=== PATIENT | male | born 1950 | race Caucasian/White ===

== ENCOUNTER 2018-09-30 19:24 | Inpatient (IN) | payer MEDICARE ==
[~2018-09-30] VITALS: Ht 182.9 cm; Wt 126.0 kg
[2018-09-30 19:30] VITALS: BP 103/36
[2018-09-30] MEDS ORDERED: CHLORTHALIDONE25 MG PO (19:31)
[2018-09-30] MEDS ORDERED: COLACE100 MG PO (19:31)
[2018-09-30] MEDS ORDERED: VITAMIN D2000 UNIT PO (19:31)
[2018-09-30] MEDS ORDERED: OXYCONTIN15 MG PO (19:31)
[2018-09-30] MEDS ORDERED: NOVOLOG100 UNIT/1 SC (19:31)
[2018-09-30] MEDS ORDERED: MIRALAX17 GM PO (19:32)
[2018-09-30] MEDS ORDERED: COZAAR50 MG PO (19:32)
[2018-09-30 20:30] VITALS: BP 112/50
[2018-09-30 20:41] LABS: BASOPHILS 0.2 % (0-2); HEMATOCRIT 24.1 % (36.0-48.0); HEMOGLOBIN 8.1 g/dL (12-16); IMMATURE GRANULOCYTES 0.5 % (0-5); LYMPHOCYTES 17.9 % (15-50); MCH 25.8 pg (26.0-34.0); MCHC 33.6 g/dL (31.0-37.0); MCV 76.8 fL (80.0-100.0); MEAN PLATELET VOLUME 7.8 fL (7.4-10.4); MONOCYTES 9.3 % (2-11); NEUTROPHILS 70.1 % (40-80); PLATELET COUNT 231 10x3/uL (130-400); RBC 3.14 10x6/uL (4.00-5.40); RDW 14.7 % (11.5-14.5); WBC 6.5 10x3/uL (4.8-10.8)
[2018-09-30 21:30] VITALS: BP 116/50
[2018-09-30 21:41] LABS: ALBUMIN 1.7 g/dL (3.4-5.0); BILIRUBIN - TOTAL 0.47 mg/dL (0.2-1.3); CALCIUM 7.4 mg/dL (8.5-10.1); CARBON DIOXIDE 16.4 mmol/L (21.0-32.0); CREATININE - SERUM 6.6 mg/dL (0.6-1.3); PROTEIN - SERUM 7.2 g/dL (6.4-8.2)
[2018-09-30 21:44] LABS: POTASSIUM - SERUM 6.4 mmol/L (3.5-5.1)
[2018-09-30 22:30] VITALS: BP 107/49
[2018-09-30 23:35] LABS: ANION GAP 21.8 mmol/L (8-16); CALCIUM 7.3 mg/dL (8.5-10.1); CREATININE - SERUM 6.6 mg/dL (0.6-1.3); POTASSIUM - SERUM 5.8 mmol/L (3.5-5.1)
[2018-10-01] VITALS (7 sets, daily range): BP systolic 108–123; BP diastolic 45–66; Ht 182.9 cm; Wt 126.0 kg
--- NOTE | 2018-10-01 00:50 | NUR ---
PT ARRIVED TO ROOM 2129, PT ABLE TO TELL NURSE NAME, , WHERE HOSPITAL IS, HAD FORGOT NAME. STATES HE IS IN A REHAB [facility]. FACE IS FLUSHED, IV RIGHT HAND 20G SODIUM BICARB INFUSING AT 100, PT HAS WEAKNESS UPPER AND LOWER. LEFT HAND HAS CONTRACTION FROM A PAST SURG. LEFT HEEL HAS A LARGE BLISTER, BOGGY, CLOSED UNSTAGEABLE. PLACED A MEPILEX ON AREA AND APPLIED HEEL PROTECTORS. RIGHT FOOT HAS A SORE ON BOTTOM OF FOOT, ON PAD OF TOES UNDER GREATER TOE. SCAB ON SORE, UNKNOWN STAGE, SMALL SORE ON GREATER TOE. OPEN COVERED BOTH WITH A MEPILEX AND APPLIED A HEEL PROTECTOR TO RIGHT FOOT WELL. CHECKED PT BUTTOCK. SOME REDNESS THAT IS BLANCHABLE. SOME SKIN PEELING IN COCCYX. NO OPEN AREA. PLACED A MEPILEX ON COCCYX. PT ORIENTED TO ROOM AND CALL LIGHT. EDEMA NOTED ON LOWER EXTREM. PT DENIES ANY NEEDS AT THIS TIME. NO S/S OF DISTRESS. WILL CPOC
[2018-10-01] MEDS ORDERED: ELAVIL10 MG PO (04:26)
[2018-10-01] MEDS ORDERED: BUMEX2 MG PO (04:27)
[2018-10-01] MEDS ORDERED: CYMBALTA20 MG PO (04:30)
[2018-10-01] MEDS ORDERED: LEVEMIR IN100 UNITS/ SC (04:31)
[2018-10-01] MEDS ORDERED: LONITEN10 MG PO (04:32)
[2018-10-01] MEDS ORDERED: ELIQUIS5 MG PO (04:35)
[2018-10-01] MEDS ORDERED: COREG25 MG PO (04:36)
[2018-10-01] MEDS ORDERED: NOVOLOG100 UNIT/1 SC (04:37)
[2018-10-01] MEDS ORDERED: CATAPRES0.1 MG PO (04:39)
--- NOTE | 2018-10-01 05:18 | NUR ---
SODIUM POLYSTYRENE GIVEN ORDERED. PT SITTING WITH HOB UP WILL CHECK BACK TO MAKE SURE PT HAS DRANK ALL OF ORDERED DOSE.
[2018-10-01 06:02] LABS: BASOPHILS 0.1 % (0-2); EOSINOPHILS 3.1 % (0-7); HEMATOCRIT 23.5 % (36.0-48.0); HEMOGLOBIN 7.7 g/dL (12-16); IMMATURE GRANULOCYTES 0.3 % (0-5); MCH 25.5 pg (26.0-34.0); MCHC 32.8 g/dL (31.0-37.0); MCV 77.8 fL (80.0-100.0); MEAN PLATELET VOLUME 8.1 fL (7.4-10.4); MONOCYTES 8.3 % (2-11); NEUTROPHILS 69.2 % (40-80); PLATELET COUNT 254 10x3/uL (130-400); RBC 3.02 10x6/uL (4.00-5.40); RDW 14.7 % (11.5-14.5); WBC 6.7 10x3/uL (4.8-10.8)
[2018-10-01 06:03] LABS: ALBUMIN 1.6 g/dL (3.4-5.0); ANION GAP 22.9 mmol/L (8-16); BILIRUBIN - TOTAL 0.4 mg/dL (0.2-1.3); CALCIUM 7.2 mg/dL (8.5-10.1); CARBON DIOXIDE 16.9 mmol/L (21.0-32.0); CREATININE - SERUM 6.4 mg/dL (0.6-1.3); POTASSIUM - SERUM 5.8 mmol/L (3.5-5.1); PROTEIN - SERUM 6.9 g/dL (6.4-8.2)
--- NOTE | 2018-10-01 06:18 | NUR ---
PT GLUCOSE IS 142 NO TREATMENT NEEDED PER SLIDING SCALE.
--- NOTE | 2018-10-01 06:20 | NUR ---
PT HAS COMPLETED ALL OF KAYEXALATE ORDERED. DENIES ANY NEEDS. WILL CPOC
[2018-10-01 09:11] LABS: COMPLEMENT C4 33.3 mg/dL (17.4-52.2)
[2018-10-01 10:15] LABS: ERYTHROCYTE SEDIMENTATION RATE 140 mm/hr (0-20)
[2018-10-01 19:43] LABS: CREATININE - URINE 78.7 mg/dL (30-125); PRO/CRE RATIO URINE 1.1 mg/g; PROTEIN - URINE 89.9 mg/dL (0.0-11.9)
[2018-10-01 19:54] LABS: AMORPHOUS SEDIMENT <1+ /lpf (NONE SEEN); APPEARANCE CLEAR (CLEAR); BACTERIA MODERATE /hpf (NONE SEEN); BILIRUBIN NEGATIVE (NEGATIVE); COLOR STRAW (YELLOW); EPITHELIAL CELLS 0-5 /hpf (0-5); GLUCOSE 50 mg/dL (NEGATIVE); KETONE NEGATIVE (NEGATIVE); NITRITE NEGATIVE (NEGATIVE); PROTEIN 1+ mg/dL (NEGATIVE); UROBILINOGEN NORMAL (NORMAL); WHITE CELLS - URINE 0-5 /hpf (0-5)
--- NOTE | 2018-10-02 00:21 | NUR ---
KAYEXALATE GIVEN ORDERED. PT FSBS IS 164 LEVEMIR AND EVAIL UNAVALIBLE. PHARMACY DID NOT PLACE IN CASSETTE. HUMILIN IS AVALIBLE. 4 UNITS GIVEN AND SNACK PROVIDED. PT DENIES ANY NEEDS. WILL CPOC
--- NOTE | 2018-10-02 02:57 | NUR ---
PT CALLED TO USE BEDPAN FOR BM. ONCE HAD A SMALL BM CLEANED AND PULLED UP IN BED. PT ASKED FOR BEDPAN AGAIN. AND CALLED TO GET OFF WITHIN 2 MINS
--- NOTE | 2018-10-02 03:06 | NUR ---
PT HAD ONE SMALL LOOSE BM, CLEANED AND REPOSITIONED. HEEL PROTECTORS ON
[2018-10-02 05:00] VITALS: BP 126/50
--- NOTE | 2018-10-02 07:30 | NUR ---
REPORT RECEIVED. WILL CONTINUE WITH POC. PT CURRENTLY LYING SEMI FOWLERS. CALL LIGHT W/I REACH. PT IS AAO AND BEDFAST. RR EVEN AND UNLABORED ON RA. SODIUM BICARB INFUSING @100ML/HR VIA R.HAND PIV. PT HAD 3 LARGE EPISODES OF DIARRHEA. CLEANED PT AND APPLIED NEW LINEN. PT DENIES ANY NEEDS AT THIS TIME. NO S/S OF DISTRESS NOTED. WILL CTM.
[2018-10-02 09:10] VITALS: BP 124/49
[2018-10-02 11:10] LABS: CREATININE - SERUM 5.2 mg/dL (0.6-1.3)
[2018-10-02 11:12] LABS: ANION GAP 16.2 mmol/L (8-16); CARBON DIOXIDE 24.8 mmol/L (21.0-32.0)
[2018-10-02 11:13] LABS: CALCIUM 6.6 mg/dL (8.5-10.1)
[2018-10-02 12:12] LABS: ANA REFLEX - DIRECT Negative (Negative)
[2018-10-02 13:24] VITALS: BP 138/54
--- NOTE | 2018-10-02 14:06 | NUR ---
Nutrition follow Up Renal ADA diet with fair po intake Pt reports eating about 50% Pt is drinking Conrad Bm today-pt has diarrhea Will add Yogurt Encouraged good po intake RD following
[2018-10-02 15:11] LABS: SPE - A/G RATIO 0.5 (0.7-1.7); SPE - ALPHA-1 GLOBULIN 0.4 g/dL (0.0-0.4); SPE - BETA GLOBULIN 1.2 g/dL (0.7-1.3); SPE - GAMMA GLOBULIN 1.5 g/dL (0.4-1.8); SPE - M-SPIKE Not Observed g/dL (Not Observed); SPE - TOTAL PROTEIN 6.1 g/dL (6.0-8.5)
[2018-10-02 17:05] VITALS: BP 127/52
[2018-10-02 20:00] VITALS: BP 126/55
--- NOTE | 2018-10-02 21:55 | NUR ---
PT FSBS IS 197 LEVEMIR GIVEN ORDERED. REG INSULIN NOT GIVEN TONIGHT. PT RESTING IN BED. DENIES ANY NEEDS. NO S/S OF DISTRESS. WILL CPOC
[2018-10-03] VITALS: BP 128/58
--- NOTE | 2018-10-03 02:50 | NUR ---
PT SLEEP. RESP EVEN AND UNLABORED. BEDLOW AND CALL LIGHT IN REACH. NO S/S OF DISTRESS. SODIUM BICARB INFUSING AT 100 ORDERED. WILL CPOC
--- NOTE | 2018-10-03 05:51 | NUR ---
PT INCONT/SPILLED URINAL A LARGE AMOUNT. GAVE PT A COMPLETE BED BATH, CHANGED GOWN AND LINEN. RIGHT GROIN/ABDOMEN SKIN FOLD RED AND MOIST. LEFT GROIN REDNESS. CLEANED AND DRIED BOTH AREAS. PLACED A MOISTURE BARRIER AND A PAPER TOWEL TO SEPARATE SKIN FOLDS. PT BUTTOCK STILL RED/HAS EXCORIATION CLEANED AND PLACED MOISTURE BARRIER. RIGHT FOOT GREATER TOE AND UNDER GREATER TOE ON TOE PAD SORES DRSG'S ARE SOILD. CHANGED DRSG'S. LEFT HEEL BLISTER PURPLE AND BOGGY. CLEANED AREA AND DRIED. PLACED A MEPILEX AND ELEVATED HEEL. PT REFUSING KAYEXALATE THIS MORNING. RIGHT HAND 20G HAS SOME REDNESS. PATENT. PT BEDLOW AND CALL LIGHT IN REACH. NOURISHMENT WITHIN REACH. PT WILL CALL FOR ASSIST WHEN NEEDED. WILL CPOC
[2018-10-03 06:04] LABS: CARBON DIOXIDE 26.4 mmol/L (21.0-32.0); CREATININE - SERUM 4.2 mg/dL (0.6-1.3); POTASSIUM - SERUM 3.4 mmol/L (3.5-5.1)
[2018-10-03 06:22] VITALS: BP 131/60
[2018-10-03 06:29] LABS: CALCIUM 6.5 mg/dL (8.5-10.1)
--- NOTE | 2018-10-03 06:36 | NUR ---
PT GLUCOSE WITH MORNING LABS ARE 115 NO INSULIN NEEDED. OFFERED SNACK PT DECLINED STATES HE WILL WAIT FOR BREAKFAST. PT HAS NO S/S OF DISTRESS. BEDLOW AND CALL LIGHT IN REACH. WILL CPOC
[2018-10-03 06:54] LABS: BASOPHILS 0.1 % (0-2); EOSINOPHILS 1.9 % (0-7); HEMATOCRIT 25.9 % (42.0-54.0); HEMOGLOBIN 8.5 g/dL (13.5-17.5); IMMATURE GRANULOCYTES 0.2 % (0-5); LYMPHOCYTES 21.6 % (15-50); MCH 25.8 pg (26.0-34.0); MCHC 32.8 g/dL (31.0-37.0); MCV 78.7 fL (80.0-100.0); MEAN PLATELET VOLUME 8.1 fL (7.4-10.4); MONOCYTES 6.7 % (2-11); NEUTROPHILS 69.5 % (40-80); PLATELET COUNT 283 10x3/uL (130-400); RBC 3.29 10x6/uL (4.20-6.10); RDW 14.8 % (11.5-14.5)
--- NOTE | 2018-10-03 07:00 | NUR ---
RECEIVED REPORT. ASSUMED CARE OF PATIENT. CALL LIGHT WITHIN REACH. NO DISTRESS. RESTING WITH EYES CLOSED. EASILY AROUSED.
[2018-10-03 09:08] VITALS: BP 147/62
--- NOTE | 2018-10-03 10:30 | NUR ---
RESTING IN BED. NO DISTRESS. TOLERATES ORAL MEDICATIONS WELL. CALL LIGHT WITHIN REACH.
[2018-10-03 11:31] VITALS: BP 145/48
--- NOTE | 2018-10-03 11:48 | NUR ---
FSBS 149. NO INSULIN PER SLIDING SCALE. NO DISTRESS.
--- NOTE | 2018-10-03 14:02 | NUR ---
MEDICATED FOR PAIN AT THIS TIME. NO DISTRESS.
[2018-10-03 15:30] VITALS: BP 138/51
--- NOTE | 2018-10-03 16:19 | NUR ---
FSBS 156. 4 UNITS HUMULIN ADMINISTERED PER SLIDIDNG SCALE. NO DISTRESS.
[2018-10-03 17:07] LABS: ANCA - ANTIMYELOPEROXIDASE <9.0 U/mL (0.0-9.0); ANCA - ANTIPROTEINASE 3 <3.5 U/mL (0.0-3.5); ANCA - ATYPICAL <1:20 titer (Neg:<1:20); ANCA - CYTOPLASMIC <1:20 titer (Neg:<1:20); ANCA - PERINUCLEAR <1:20 titer (Neg:<1:20)
--- NOTE | 2018-10-03 18:13 | NUR ---
RESTING IN BED WITH EYES CLOSED. NO DISTRESS.
[2018-10-03 20:00] VITALS: BP 104/52
--- NOTE | 2018-10-03 20:13 | NUR ---
RECEIVED REPORT, WILL ASSUME CARE OF PT, ASSIST PT WITH A DRINK OF WATER, DENIES ANY OTHER NEEDS AT THIS TIME, BED IS LOW, SRX3, CALL LIGHT IN REACH, WILL CONTINUE PLAN OF CARE
[2018-10-04] VITALS: BP 109/58
--- NOTE | 2018-10-04 02:52 | NUR ---
SLEEPING, BED IS LOW, SRX3, CALL LIGHT IN REACH, WILL CONTINUE PLAN OF CARE
[2018-10-04 03:00] VITALS: BP 121/50
--- NOTE | 2018-10-04 03:01 | NUR ---
I have reviewed this patient and I concur with the Shift Assessment completed by the Licensed Practical Nurse today this shift.
[2018-10-04 04:58] LABS: BASOPHILS 0 % (0-2); EOSINOPHILS 0.5 % (0-7); HEMATOCRIT 23.8 % (42.0-54.0); HEMOGLOBIN 7.8 g/dL (13.5-17.5); IMMATURE GRANULOCYTES 0.5 % (0-5); MCH 25.9 pg (26.0-34.0); MCHC 32.8 g/dL (31.0-37.0); MCV 79.1 fL (80.0-100.0); MEAN PLATELET VOLUME 7.7 fL (7.4-10.4); MONOCYTES 8.9 % (2-11); NEUTROPHILS 70.1 % (40-80); RBC 3.01 10x6/uL (4.20-6.10); RDW 14.6 % (11.5-14.5)
[2018-10-04 05:06] LABS: PLATELET COUNT 217 10x3/uL (130-400)
--- NOTE | 2018-10-04 07:39 | NUR ---
ROUNDING DONE WITH PATIENT LAYING ON HIS BACK. LEFT PACEMAKER SITE SEEN, ON MONITOR SHOWING PACED, HR 64. RIGHT HAND PIV SEEN WITH NABICAR INFUSING AT 100 CC/HR. CRACKLES HEARD THROUGHOUT LEFT LUNG FIELD. ENCOURAGED TO COUGH AND DEEP BREATH. DRESSING SEEN TO RIGHT FOOT, LEFT HEEL SEEN WITH MEPILEX. BOTH OF THESE AE C/D/I. FEET ARE UP ON PILLOW.
[2018-10-04 08:32] VITALS: BP 139/52
[2018-10-04 09:19] LABS: ANION GAP 11.3 mmol/L (8-16); CARBON DIOXIDE 30.9 mmol/L (21.0-32.0); CREATININE - SERUM 3.4 mg/dL (0.6-1.3); POTASSIUM - SERUM 3.2 mmol/L (3.5-5.1)
[2018-10-04 09:26] LABS: CALCIUM 6.5 mg/dL (8.5-10.1)
[2018-10-04 12:27] VITALS: BP 140/57
--- NOTE | 2018-10-04 13:53 | NUR ---
PATIENT TO RIP OUT HIS IV AND COVERED IN BM. CLEANED UP FROM THIS AND NEW LINEN CHANGED. WILL ATTEMPT IV ACCESS AGAIN.
--- NOTE | 2018-10-04 14:31 | NUR ---
PATIENT HAS TRIED SEVERAL TIMES TO HAVE A BM, PASSING FLATUS ONLY.
--- NOTE | 2018-10-04 15:26 | NUR ---
RESTING WITH EYES CLOSED, RESP ARE EVEN, LAYING ON LEFT SIDE. WILL CONTINUE TO MONITOR.
[2018-10-04 15:58] VITALS: BP 131/58
--- NOTE | 2018-10-04 19:20 | NUR ---
RECEIVED REPORT, WILL ASSUME CARE OF PT, ASSISTED PT WITH A DRINK OF WATER, DENIES ANY OTHER NEEDS AT THIS TIME, BED IS LOW, SRX2, CALL LIGHT IN REACH, WILL CONTINUE PLAN OF CARE
[2018-10-04 20:26] VITALS: BP 143/63
[2018-10-05 01:17] VITALS: BP 140/55
--- NOTE | 2018-10-05 03:18 | NUR ---
I have reviewed this patient and I concur with the Shift Assessment completed by the Licensed Practical Nurse today this shift.
[2018-10-05 05:14] LABS: BASOPHILS 0.2 % (0-2); EOSINOPHILS 1.9 % (0-7); HEMATOCRIT 26.1 % (42.0-54.0); HEMOGLOBIN 8.4 g/dL (13.5-17.5); IMMATURE GRANULOCYTES 0.6 % (0-5); MCHC 32.2 g/dL (31.0-37.0); MCV 80.8 fL (80.0-100.0); MEAN PLATELET VOLUME 8.1 fL (7.4-10.4); NEUTROPHILS 68.3 % (40-80); RBC 3.23 10x6/uL (4.20-6.10); RDW 14.2 % (11.5-14.5)
[2018-10-05 05:21] LABS: PLATELET COUNT 295 10x3/uL (130-400); WBC 10.8 10x3/uL (4.8-10.8)
[2018-10-05 05:48] LABS: ANION GAP 8.7 mmol/L (8-16); CARBON DIOXIDE 34.2 mmol/L (21.0-32.0); CREATININE - SERUM 2.8 mg/dL (0.6-1.3)
[2018-10-05 05:52] LABS: POTASSIUM - SERUM 2.9 mmol/L (3.5-5.1)
[2018-10-05 05:55] VITALS: BP 172/53
--- NOTE | 2018-10-05 06:00 | NUR ---
BS-46, GAVE 2 APPLEJUICES AND LEODAN CRACKERS
[2018-10-05 08:08] VITALS: BP 128/47
--- NOTE | 2018-10-05 08:31 | NUR ---
PT RESTING IN BED, SHIFT ASSESSMENT PERFORMED. ASSISTED PT WITH TRAY SET UP. DENIES ANY PAIN AT THIS TIME. DENIES ANY OTHER NEEDS AT THIS TIME. CALL LIGHT WITHIN REACH. WILL CONT TO FOLLOW PLAN OF CARE
[2018-10-05 09:08] LABS: ANTI-GLOMERULAR BASMENT MEMBRN 5 units (0-20)
[2018-10-05 12:08] VITALS: BP 150/59
--- NOTE | 2018-10-05 19:21 | NUR ---
ASSESSEMENT COMPLETE, PT A&O. RESPERATIONS NON LABORED ON RA, IV TO RIGHT AC WITH NS INFUSING AT KVO. IV SITE CLEAN AND DRY. HELD CUP SO PT COULD GET A DRINK, NO OTHER NEEDS VOICED AT THIS TIME, BED LOW, CL IN REACH.
[2018-10-05 22:04] VITALS: BP 158/69
[2018-10-06] VITALS (7 sets, daily range): BP systolic 137–163; BP diastolic 54–81
--- NOTE | 2018-10-06 04:26 | NUR ---
I have reviewed this patient and I concur with the Shift Assessment completed by the Licensed Practical Nurse today this shift.
[2018-10-06 05:44] LABS: BASOPHILS 0.1 % (0-2); EOSINOPHILS 1.1 % (0-7); HEMATOCRIT 24.8 % (42.0-54.0); HEMOGLOBIN 7.7 g/dL (13.5-17.5); IMMATURE GRANULOCYTES 0.3 % (0-5); LYMPHOCYTES 18.4 % (15-50); MCH 25.1 pg (26.0-34.0); MCV 80.8 fL (80.0-100.0); MEAN PLATELET VOLUME 8.1 fL (7.4-10.4); MONOCYTES 7.3 % (2-11); NEUTROPHILS 72.8 % (40-80); RBC 3.07 10x6/uL (4.20-6.10); RDW 14.2 % (11.5-14.5); WBC 9.5 10x3/uL (4.8-10.8)
[2018-10-06 06:17] LABS: PLATELET COUNT 231 10x3/uL (130-400)
[2018-10-06 06:36] LABS: ANION GAP 12.5 mmol/L (8-16); CALCIUM 7.1 mg/dL (8.5-10.1); CARBON DIOXIDE 29.5 mmol/L (21.0-32.0); CREATININE - SERUM 2.3 mg/dL (0.6-1.3)
--- NOTE | 2018-10-06 07:47 | NUR ---
MORNING ROUNDS MADE. PT LAYING IN BED RESTING. DENIES PAIN AT THIS TIME. BREATHING EVEN AND UNLABORED. 3+ PITTING EDEMA TO BLE. RM AIR. IV TO R FA BACILIO. KAELYN C/D/I. PATENT, NO REDNESS OR EDEMA NOTED. PACED ON TELE. FALL PRECATIONS IN PLACE. WILL CTM.
--- NOTE | 2018-10-06 09:48 | NUR ---
PT TOOK MEDICATIONS WITHOUT DIFFICULTY. ASSITED PT WITH BREAKFAST. HAS A HARD TIME USING HANDS DUE TO TENDON INJURY. BLISTER TO PT L HEEL OPENED WHEN PT WAS BEING ASSITED UP IN BED BY STUDENT NURSES. HEEL COVERED WITH DRESSING. NO FURTHER CONCERNS AT THIS TIME. FALL PRECAUTIONS IN PLACE. WILL CTM.
--- NOTE | 2018-10-06 09:49 | NUR ---
BLOOD RECEIVED FROM BLOOD BANK. BLOOD BEGAN TO PT IV IN R FA. IV PATENT, DRSG C/D/I, NO REDNESS OR EDEMA NOTED. BEGINING VITALS STABLE. PT STATES HE HAS NEVER HAD BLOOD BEFORE. PT TO RECEIVE 1 UNIT OF PRBC. UNIT HUNG BY KLAUS CROWDER. WILL MONITOR PT FOR FIRST 15 MINUTES OF TRANSFUSION. NO S/S OF DISTRESS AT THIS TIME. WILL CTM.
--- NOTE | 2018-10-06 10:01 | NUR ---
PT SECOND SET OF VITALS DURING BLOOD TRANSFUSION WNL
--- NOTE | 2018-10-06 12:28 | NUR ---
PT LOOKING FLUSHED AND WARM TO TOUCH. CHECKED PT TEMP, 100.3. PAUSED TRANSFUSION. NOTIFIED CHARGE NURSE BRAYAN CROWDER. STATED THAT SINCE PT HAD BEEN STEADILY RUNNING LOW GRADE TEMP CONTINUE TO FLUSH BLOOD. BLANKETS REMOVED FROM PT, AIR TURNED ON IN ROOM, AND FAN APPLIED TOWARD PT. WILL CTM
--- NOTE | 2018-10-06 13:27 | NUR ---
I have reviewed this patient and I concur with the Shift Assessment completed by the Licensed Practical Nurse today this shift.
--- NOTE | 2018-10-06 14:56 | NUR ---
Nutrition follow-up: Diet: Renal ADA PO Intake 75-100% of meals Labs reviewed Wt: 290# +BM RDN following.
--- NOTE | 2018-10-06 15:47 | NUR ---
PT GIVEN A BATH BY WOODWORKING BENCH CARPENTER NEW DRSG APPLIED TO BUTTOCKS R GREAT TOE, AND L HEEL. DRSG C/D/I. NO FURTHER CONCERNS AT THIS TIME. WILL CTM.
[2018-10-06 17:08] LABS: UPE RAND - ALBUMIN QNS % (()); UPE RAND - ALPHA 1 GLOBULIN QNS % (()); UPE RAND - ALPHA 2 GLOBULIN QNS % (()); UPE RAND - BETA GLOBULIN QNS % (()); UPE RAND - GAMMA GLOBULIN QNS % (())
--- NOTE | 2018-10-06 17:11 | MORECARE ---
CASE MANAGEMENT DISCHARGE SUMMARY PATIENT: DARWIN ROJAS UNIT: [id number] ADM DATE: 09/30/18 AGE: 67 : 49 SEX: M ROOM/BED: D.2130 AUTHOR: KAREEN MOISE PHYSICIAN: REFERRING PHYSICIAN: CHIQUIS PETTY MD DATE OF SERVICE: 10/06/18 Discharge Plan Patient Name: DARWIN ROJAS [facility] [facility] 1950 Planned Disposition: Custodial Facility Anticipated Discharge Date: Discharge Date: Expected LOS: Initial Reviewer: [id number] Initial Review Date: 10/06/2018 Generated: 10/06/18 6:10 pm Patient Name: DARWIN ROJAS Page [phone] at 1711 All edits/amendments must be made on the electronic document DICTATION DATE: 10/06/181709 BASE ENGINEER: CHUNG 10/06/181709 RPT#: [id number] DC DATE: STATUS: ADM IN [facility] [address] [place] [address] END OF REPORT
--- NOTE | 2018-10-06 17:19 | MORECARE ---
CASE MANAGEMENT DISCHARGE SUMMARY PATIENT: DARWIN ROJAS UNIT: [id number] ADM DATE: 09/30/18 AGE: 67 : 49 SEX: M ROOM/BED: D.2130 AUTHOR: KAREEN MOISE PHYSICIAN: REFERRING PHYSICIAN: CHIQUIS PETTY MD DATE OF SERVICE: 10/06/18 Discharge Plan Patient Name: DARWIN ROJAS [facility] [facility] 1950 Planned Disposition: Care Home Facility Anticipated Discharge Date: Discharge Date: Expected LOS: Initial Reviewer: [email or web address] Initial Review Date: 10/06/2018 Generated: 10/06/18 6:18 pm Comments DCP- Discharge Planning Updated by [id number]: Yao Cervantes on 10/06/18 4:[address] Patient Name: DARWIN ROJAS Admission Status: ER Accout number: [id number] Admission Date: 09-30-2018 : 1950 Admission Diagnosis:ACUTE KIDNEY FAILURE, UNSPECIFIED Attending: CHIQUIS PETTY Current LOS: 6 Anticipated DC Date: Planned Disposition: Care Home Facility Primary Insurance: MEDICAID [place] PLANNED EXTERNAL PROVIDER: [facility], MEDICARE REHAB BED Discharge Planning Comments: CM RECEIVED ORDER FOR REHAB PLACEMENT IN [place]. CM MET WITH PT IN ROOM TO DISCUSS DISCHARGE PLANNING AND NEEDS. PT REPORTS LIVING AT HOME INDEPENDENTLY AND ALONE. PT HAS CANE, WALKER AND WHEELCHAIR WITH NO MEDICAL EQUIPMENT PROVIDER PREFERENCE. PT HAS HOME HEALTH FOR NURSING AND PHYSICAL THERAPY AT HOME WITH [facility]ARE [facility] AND PERSONAL CARE WITH [facility] ON [address], FRIDAY THRU FRIDAY FOR 14 3/4 HOURS TOTAL CARE PER WEEK. CM DISCUSSED REHAB ORDER, AVAILABILITY OF HOME HEALTH, REHAB SERVICES AND MEDICAL EQUIPMENT. PT REPORTS HAVING [facility] MEDICARE AND [place] MEDICAID. PT WILL ASK HIS DAUGHTER TO BRING MEDICARE CARD TOMORROW TO ASSIST WITH REHAB PLACEMENT. CM GAVE PT PROVIDER LISTING, PT WANTS TO GO TO [facility], REPORTS GETTING OUT OF REHAB 2 WEEKS AGO FROM THERE. CHOICE LETTER SIGNED. IMPORTANT MESSAGE FROM MEDICARE PROVIDED AND EXPLAINED. CM TO FAX REFERRAL TO [facility] SOON POSSIBLE. PT TO PROVIDE CM WITH MEDICARE CARD 10-07-18 TO ASSIST WITH REHAB PLACEMENT. Relocation Manager: Yao Cervantes DCPIA - Discharge Planning Initial Assessment Updated by [id number]: Yao Cervantes on 10/06/18 5:11 pm * Is the patient Alert and Oriented? Yes * How many steps to enter\exit or inside your home? * PCP DR SALEEM IN [place] * Pharmacy [facility] IN [place] * Preadmission Environment Home Alone * ADLs Independent * Equipment Cane Walker Wheelchair * Other Equipment NO MEDICAL EQUIPMENT PROVIDER PREFERENCE * List name and contact numbers for known caregivers / representatives who currently or will assist patient after discharge: FRANCO RM, DTR, * Verbal permission to speak to the caregivers and representatives has been obtained from the patient. Yes * Community resources currently utilized Home Health Private Duty Care * Please name any agencies selected above. [facility] ON [address], PERSONAL ARE, M-F, 14 3/4 HOURS WEEKLY * Additional services required to return to the preadmission environment? Yes * Can the patient safely return to the preadmission environment? Yes * Has this patient been hospitalized within the prior 30 days at any hospital? Yes Coverage Notice Reviewer: [id number] Anahy Cervantes Notice Issued Date-Time: 10/06/2018 16:30 Notice Type: Patient Choice Letter Notice Delivered To: Patient Relationship to Patient: Certified Activities Director Name: Delivery Method: HAND - Hand Delivered Shanelle Days: Prior Verbal Notification: Recipient Understood Notice: Yes Recipient Signature: Yes Med Rec Note Co-signed by Attending: Coverage Notice Comment: [facility] Reviewer: [id number] Anahy Cervantes Notice Issued Date-Time: 10/06/2018 16:30 Notice Type: IM Discharge Notice Notice Delivered To: Patient Relationship to Patient: Certified Activities Director Name: Delivery Method: HAND - Hand Delivered Shanelle Days: Prior Verbal Notification: Recipient Understood Notice: Yes Recipient Signature: Yes Med Rec Note Co-signed by Attending: Coverage Notice Comment: Last DP export: 10/06/18 4:10 p Patient Name: DARWIN ROJAS Page [id number] at 6639 All edits/amendments must be made on the electronic document DICTATION DATE: 10/06/181717 FINANCIAL REPORTING ACCOUNTANT: CHUNG 10/06/181717 RPT#: [id number] DC DATE: STATUS: ADM IN [facility] [address] [place] [address] END OF REPORT
--- NOTE | 2018-10-06 19:15 | NUR ---
PT CALLING FOR BEDPAN. ASSISTED ON TO BEDPAN. PT DID NOT HAVE BM. ASSISTED WITH URINAL USE. 150CC OF DARK URINE. PT IS AAO. DENIES ANY OTHER NEEDS AT THIS TIME. NAME AND DATE PLACED ON BOARD. PT WILL CALL FOR ASSIST WHEN NEEDED. WILL CPOC
--- NOTE | 2018-10-06 20:22 | NUR ---
PT FSBS IS 183 LEVEMIR GIVEN. PT DECLINES REG INSULIN. NOURISHMENT PROVIDED AND NIGHT MEDICATIONS GIVEN. PT IS AAO. DENIES ANY NEEDS. NO S/S OF DISTRESS. WILL CPOC
[2018-10-07 00:38] VITALS: BP 145/61
[2018-10-07 05:39] LABS: BASOPHILS 0.1 % (0-2); EOSINOPHILS 0.9 % (0-7); HEMATOCRIT 27.7 % (42.0-54.0); HEMOGLOBIN 8.7 g/dL (13.5-17.5); IMMATURE GRANULOCYTES 0.4 % (0-5); LYMPHOCYTES 14.3 % (15-50); MCH 25.5 pg (26.0-34.0); MCHC 31.4 g/dL (31.0-37.0); MCV 81.2 fL (80.0-100.0); MONOCYTES 7.7 % (2-11); NEUTROPHILS 76.6 % (40-80); PLATELET COUNT 219 10x3/uL (130-400); RBC 3.41 10x6/uL (4.20-6.10); WBC 9.6 10x3/uL (4.8-10.8)
[2018-10-07 06:15] VITALS: BP 151/60
[2018-10-07 06:26] LABS: ANION GAP 11.6 mmol/L (8-16); CALCIUM 7.3 mg/dL (8.5-10.1); CARBON DIOXIDE 30.7 mmol/L (21.0-32.0); CREATININE - SERUM 2.1 mg/dL (0.6-1.3); POTASSIUM - SERUM 3.3 mmol/L (3.5-5.1)
--- NOTE | 2018-10-07 07:10 | NUR ---
FSBS IS 102 NO INSULIN GIVEN PER SLIDING SCALE.
--- NOTE | 2018-10-07 08:00 | NUR ---
PT RESTING IN BED, SHIFT ASSESSMENT PERFORMED. DENIES NEEDS AT THIS TIME, WILL CONT TO FOLLOW PLAN OF CARE
[2018-10-07 08:03] VITALS: BP 162/75
--- NOTE | 2018-10-07 11:24 | MORECARE ---
CASE MANAGEMENT DISCHARGE SUMMARY PATIENT: DARWIN ROJAS UNIT: [id number] ADM DATE: 09/30/18 AGE: 67 : 49 SEX: M ROOM/BED: D.2130 AUTHOR: KAREEN MOISE PHYSICIAN: REFERRING PHYSICIAN: CHIQUIS PETTY MD DATE OF SERVICE: 10/07/18 Discharge Plan Patient Name: DARWIN ROJAS [facility] [facility] 1950 Planned Disposition: Nursing Home Facility Anticipated Discharge Date: Discharge Date: Expected LOS: Initial Reviewer: [id number] Initial Review Date: 10/06/2018 Generated: 10/07/18 12:24 pm Comments DCP- Discharge Planning Updated by [id number]: Yao Cervantes on 10/06/18 4:[address] Patient Name: DARWIN ROJAS Admission Status: ER Accout number: [id number] Admission Date: 09-30-2018 : 1950 Admission Diagnosis:ACUTE KIDNEY FAILURE, UNSPECIFIED Attending: CHIQUIS PETTY Current LOS: 6 Anticipated DC Date: Planned Disposition: Nursing Home Facility Primary Insurance: MEDICAID [place] PLANNED EXTERNAL PROVIDER: [facility], MEDICARE REHAB BED Discharge Planning Comments: CM RECEIVED ORDER FOR REHAB PLACEMENT IN [place]. CM MET WITH PT IN ROOM TO DISCUSS DISCHARGE PLANNING AND NEEDS. PT REPORTS LIVING AT HOME INDEPENDENTLY AND ALONE. PT HAS CANE, WALKER AND WHEELCHAIR WITH NO MEDICAL EQUIPMENT PROVIDER PREFERENCE. PT HAS HOME HEALTH FOR NURSING AND PHYSICAL THERAPY AT HOME WITH CARE [facility] AND PERSONAL CARE WITH [facility] ON [address], FRIDAY THRU FRIDAY FOR 14 3/4 HOURS TOTAL CARE PER WEEK. CM DISCUSSED REHAB ORDER, AVAILABILITY OF HOME HEALTH, REHAB SERVICES AND MEDICAL EQUIPMENT. PT REPORTS HAVING [facility] MEDICARE AND [place] MEDICAID. PT WILL ASK HIS DAUGHTER TO BRING MEDICARE CARD TOMORROW TO ASSIST WITH REHAB PLACEMENT. CM GAVE PT PROVIDER LISTING, PT WANTS TO GO TO [facility], REPORTS GETTING OUT OF REHAB 2 WEEKS AGO FROM THERE. CHOICE LETTER SIGNED. IMPORTANT MESSAGE FROM MEDICARE PROVIDED AND EXPLAINED. CM TO FAX REFERRAL TO [facility] SOON POSSIBLE. PT TO PROVIDE CM WITH MEDICARE CARD 10-07-18 TO ASSIST WITH REHAB PLACEMENT. Box Maker Wood: Yao Cervantes DCPIA - Discharge Planning Initial Assessment Updated by [id number]: Yao Cervantes on 10/06/18 5:11 pm * Is the patient Alert and Oriented? Yes * How many steps to enter\exit or inside your home? * PCP DR SALEEM IN [place] * Pharmacy [facility] IN [place] * Preadmission Environment Home Alone * ADLs Independent * Equipment Cane Walker Wheelchair * Other Equipment NO MEDICAL EQUIPMENT PROVIDER PREFERENCE * List name and contact numbers for known caregivers / representatives who currently or will assist patient after discharge: FRANCO RM, DTR, * Verbal permission to speak to the caregivers and representatives has been obtained from the patient. Yes * Community resources currently utilized Home Health Private Duty Care * Please name any agencies selected above. [facility] ON [address], PERSONAL ARE, M-F, 14 3/4 HOURS WEEKLY * Additional services required to return to the preadmission environment? Yes * Can the patient safely return to the preadmission environment? Yes * Has this patient been hospitalized within the prior 30 days at any hospital? Yes External Providers External Provider: Critical access hospital and [facility] Next Contact Date: 10/07/2018 Service Request Date: Service Type: Resolution: Reviewer: Comments: Coverage Notice Reviewer: [id number] Anahy Cervantes Notice Issued Date-Time: 10/06/2018 16:30 Notice Type: Patient Choice Letter Notice Delivered To: Patient Relationship to Patient: Wash Oil Pump Operator Helper Name: Delivery Method: HAND - Hand Delivered Shanelle Days: Prior Verbal Notification: Recipient Understood Notice: Yes Recipient Signature: Yes Med Rec Note Co-signed by Attending: Coverage Notice Comment: [facility] Reviewer: [email or web address] Anahy Cervantes Notice Issued Date-Time: 10/06/2018 16:30 Notice Type: IM Discharge Notice Notice Delivered To: Patient Relationship to Patient: Wash Oil Pump Operator Helper Name: Delivery Method: HAND - Hand Delivered Shanelle Days: Prior Verbal Notification: Recipient Understood Notice: Yes Recipient Signature: Yes Med Rec Note Co-signed by Attending: Coverage Notice Comment: Last DP export: 10/06/18 4:18 p Patient Name: DARWIN ROJAS Page [id number] at 1124 All edits/amendments must be made on the electronic document DICTATION DATE: 10/07/181123 TUTORING ASSISTANT: CHUNG 10/07/181123 RPT#: [id number] DC DATE: STATUS: ADM IN [facility] [address] [place] [address] END OF REPORT
[2018-10-07 11:50] VITALS: BP 138/43
--- NOTE | 2018-10-07 11:53 | MORECARE ---
CASE MANAGEMENT DISCHARGE SUMMARY PATIENT: DARWIN ROJAS UNIT: [id number] ADM DATE: 09/30/18 AGE: 67 : 49 SEX: M ROOM/BED: D.2130 AUTHOR: KAREEN MOISE PHYSICIAN: REFERRING PHYSICIAN: CHIQUIS PETTY MD DATE OF SERVICE: 10/07/18 Discharge Plan Patient Name: DARWIN ROJAS Facility: [facility]:[place] : 1950 Planned Disposition: Detention Facility Anticipated Discharge Date: Discharge Date: Expected LOS: Initial Reviewer: [id number] Initial Review Date: 10/06/2018 Generated: 10/07/18 12:53 pm Comments DCP- Discharge Planning Updated by [id number]: Yao Cervantes on 10/07/18 10:[address] Patient Name: DARWIN ROJAS Encounter No: [id number] : 1950 Primary Insurance: MEDICAID [place] Anticipated DC Date: Planned Disposition: Detention Facility External Planned Provider: [facility], MEDICARE REHAB BED DCP follow-up note: CM RECEIVED CALL FROM [place] [facility], PT WAS SENT TO HOSPITAL FROM REHAB, THEY PLAN TO ACCEPT BACK TO REHAB BED AT DISCHARGE. [place] IS FAXING PT'S MEDICARE CARD AND HAS PT HAVING STANDARD MEDICARE A & B. CM FAXED HOSPITAL UPDATE TO [phone]. FOR DISCHARGE, FAX DISCHARGE INFOMATION TO [facility], . CALL NURSE REPORT TO [facility] AT [phone]. [facility] TO ARRANGE VAN TRANSPORTATION. Yao Cervantes CASE MANAGEMENT DCP- Discharge Planning Updated by [id number]: Yao Cervantes on 10/06/18 4:[address] Patient Name: DARWIN ROJAS Admission Status: ER Accout number: [id number] Admission Date: 09-30-2018 : 1950 Admission Diagnosis:ACUTE KIDNEY FAILURE, UNSPECIFIED Attending: CHIQUIS PETTY Current LOS: 6 Anticipated DC Date: Planned Disposition: Detention Facility Primary Insurance: MEDICAID [place] PLANNED EXTERNAL PROVIDER: [facility], MEDICARE REHAB BED Discharge Planning Comments: CM RECEIVED ORDER FOR REHAB PLACEMENT IN [place]. CM MET WITH PT IN ROOM TO DISCUSS DISCHARGE PLANNING AND NEEDS. PT REPORTS LIVING AT HOME INDEPENDENTLY AND ALONE. PT HAS CANE, WALKER AND WHEELCHAIR WITH NO MEDICAL EQUIPMENT PROVIDER PREFERENCE. PT HAS HOME HEALTH FOR NURSING AND PHYSICAL THERAPY AT HOME WITH [facility] AND PERSONAL CARE WITH [facility], FRIDAY THRU FRIDAY FOR 14 3/4 HOURS TOTAL CARE PER WEEK. CM DISCUSSED REHAB ORDER, AVAILABILITY OF HOME HEALTH, REHAB SERVICES AND MEDICAL EQUIPMENT. PT REPORTS HAVING [facility] MEDICARE AND [place] MEDICAID. PT WILL ASK HIS DAUGHTER TO BRING MEDICARE CARD TOMORROW TO ASSIST WITH REHAB PLACEMENT. CM GAVE PT PROVIDER LISTING, PT [facility]S [facility], REPORTS GETTING OUT OF REHAB 2 WEEKS AGO FROM THERE. CHOICE LETTER SIGNED. IMPORTANT MESSAGE FROM MEDICARE PROVIDED AND EXPLAINED. CM TO FAX REFERRAL TO [facility] SOON POSSIBLE. PT TO PROVIDE CM WITH MEDICARE CARD 10-07-18 TO ASSIST WITH REHAB PLACEMENT. Technical Operations Vice President: [facility]antes [facility] - Discharge Planning Initial Assessment Updated by [id number]: Yao Cervantes on 10/06/18 5:11 pm * Is the patient Alert and Oriented? Yes * How many steps to enter\exit or inside your home? * PCP DR SALEEM IN [place] * [facility] [place] * Preadmission Environment Home Alone * ADLs Independent * Equipment Cane Walker Wheelchair * Other Equipment NO MEDICAL EQUIPMENT PROVIDER PREFERENCE * List name and contact numbers for known caregivers / representatives who currently or will assist patient after discharge: FRANCO RM DTR, * Verbal permission to speak to the caregivers and representatives has been obtained from the patient. Yes * Community resources currently utilized Home Health Private Duty Care * Please name any agencies selected above. [facility], [facility]ICAL [facility]AP[facility] [address], PERSONAL ARE, M-F, 14 3/4 HOURS WEEKLY * Additional services required to return to the preadmission environment? Yes * Can the patient safely return to the preadmission environment? Yes * Has this patient been hospitalized within the prior 30 days at any hospital? Yes Coverage Notice Reviewer: [id number] - Yao Cervantes Notice Issued Date-Time: 10/06/2018 16:30 Notice Type: Patient Choice Letter Notice Delivered To: Patient Relationship to Patient: Supervisor Histology Name: Delivery Method: HAND - Hand Delivered Shanelle Days: Prior Verbal Notification: Recipient Understood Notice: Yes Recipient Signature: Yes Med Rec Note Co-signed by Attending: Coverage Notice Comment: [facility] Reviewer: [id number] Anahy Cervantes Notice Issued Date-Time: 10/06/2018 16:30 Notice Type: IM Discharge Notice Notice Delivered To: Patient Relationship to Patient: Supervisor Histology Name: Delivery Method: HAND - Hand Delivered Shanelle Days: Prior Verbal Notification: Recipient Understood Notice: Yes Recipient Signature: Yes Med Rec Note Co-signed by Attending: Coverage Notice Comment: Last DP export: 10/07/18 10:24 am Patient Name: DARWIN ROJAS Page 88527 at 1153 All edits/amendments must be made on the electronic document DICTATION DATE: 10/07/18 115 GLASS SCIENCE ENGINEER: CHUNG 10/07/18 1152 RPT#: [id number] DC DATE: STATUS: ADM IN [facility] [address] [place] [address] END OF REPORT
[2018-10-07 15:05] VITALS: BP 146/57
--- NOTE | 2018-10-07 19:15 | NUR ---
PT RESTING IN BED. PT HAS RED/FLUSHED FACE PUT PILLOW UNDER BUTTOCK. DRSG CDI ON LEFT HEEL AND RIGHT TOE. PT HAS A LEFT PIV S/L REPOSITIONING PT FREQUENTLY. HEELS ELEVATED. PT WILL CALL FOR ASSIST WHEN NEEDED. NOURISHMENT WITHIN REACH. WILL CPOC
[2018-10-07 21:21] VITALS: BP 143/65
--- NOTE | 2018-10-07 21:25 | NUR ---
pt fsbs is 161 levemir given 30 units. regular insulin refused. night medications given. pt verbalized understanding of all medications. heel protectors on. pillow placed under buttock. pt will call for assist when needed. will cpoc
--- NOTE | 2018-10-07 23:04 | NUR ---
PT USED BEDPAN. NO OUT PUT. 300ML OF YELLOW URINE IN URINAL WITH ASSIST FROM NURSE. PT HAS NO S/S OF DISTRESS. WILL CPOC
[2018-10-08] VITALS: BP 146/64
[2018-10-08 04:00] VITALS: BP 168/64
[2018-10-08 05:35] LABS: ANION GAP 9.5 mmol/L (8-16); CALCIUM 7.4 mg/dL (8.5-10.1); CARBON DIOXIDE 30.7 mmol/L (21.0-32.0); CREATININE - SERUM 1.9 mg/dL (0.6-1.3); POTASSIUM - SERUM 3.2 mmol/L (3.5-5.1)
--- NOTE | 2018-10-08 06:05 | NUR ---
PT GLUCOSE IS 95 NO INSULIN NEEDED PER SLIDING SCALE. PT DENIES ANY NEEDS. WILL CPOC
[2018-10-08 08:23] VITALS: BP 152/63
--- NOTE | 2018-10-08 09:51 | MORECARE ---
CASE MANAGEMENT DISCHARGE SUMMARY PATIENT: DARWIN ROJAS UNIT: [id number] ADM DATE: 09/30/18 AGE: 67 : 49 SEX: M ROOM/BED: D.2130 AUTHOR: KAREEN MOISE PHYSICIAN: REFERRING PHYSICIAN: CHIQUIS PETTY MD DATE OF SERVICE: 10/08/18 Discharge Plan Patient Name: DARWIN ROJAS Facility: [facility]:[place] : 1950 Planned Disposition: Shelter Facility Anticipated Discharge Date: Discharge Date: Expected LOS: Initial Reviewer: [id number] Initial Review Date: 10/06/2018 Generated: 10/08/18 10:51 am Comments DCP- Discharge Planning Updated by [email or web address]: Yao Cervantes on 10/08/18 8:[address] Patient Name: DARWIN ROJAS Encounter No: [id number] : 1950 Primary Insurance: MEDICARE A & B Anticipated DC Date: Planned Disposition: Shelter Facility External Planned Provider: [facility], MEDICARE REHAB BED DCP follow-up note: CM RECEIVED CALL FROM [facility], CM NOTIFIED THAT PT IS READY TO DISCHARGE TODAY. [place] PROVIDED PT'S MEDICARE NUMBER. CM FAXED HOSPITAL UPDATE TO [phone]. CM PROVIDED HOSPITAL REGISTRATION WITH MEDICARE NUMBER FOR BILLING. FOR DISCHARGE, FAX DISCHARGE INFOMATION TO [facility], . CALL NURSE REPORT TO [facility] AT [phone]. [facility] TO ARRANGE VAN TRANSPORTATION. Yao Cervantes, CASE MANAGEMENT DCP- Discharge Planning Updated by [id number]: Yao Cervantes on 10/07/18 10:[address] Patient Name: DARWIN ROJAS Encounter No: [id number] : 1950 Primary Insurance: MEDICAID [place] Anticipated DC Date: Planned Disposition: Shelter Facility External Planned Provider: [facility], MEDICARE REHAB BED DCP follow-up note: CM RECEIVED CALL FROM [facility], PT WAS SENT TO HOSPITAL FROM REHAB, THEY PLAN TO ACCEPT BACK TO REHAB BED AT DISCHARGE. [place] IS FAXING PT'S MEDICARE CARD AND HAS PT HAVING STANDARD MEDICARE A & B. CM FAXED HOSPITAL UPDATE TO [phone]. FOR DISCHARGE, FAX DISCHARGE INFOMATION TO [facility], . CALL NURSE REPORT TO [facility] AT [phone]. [facility] TO ARRANGE VAN TRANSPORTATION. Yao Cervantes, CASE MANAGEMENT DCP- Discharge Planning Updated by [id number]: Yao Cervantes on 10/06/18 4:[address] Patient Name: DARWIN ROJAS Admission Status: ER Accout number: [id number] Admission Date: 09-30-2018 : 1950 Admission Diagnosis:ACUTE KIDNEY FAILURE, UNSPECIFIED Attending: CHIQUIS PETTY Current LOS: 6 Anticipated DC Date: Planned Disposition: Shelter Facility Primary Insurance: MEDICAID [place] PLANNED EXTERNAL PROVIDER: [facility], MEDICARE REHAB BED Discharge Planning Comments: CM RECEIVED ORDER FOR REHAB PLACEMENT IN [place]. CM MET WITH PT IN ROOM TO DISCUSS DISCHARGE PLANNING AND NEEDS. PT REPORTS LIVING AT HOME INDEPENDENTLY AND ALONE. PT HAS CANE, WALKER AND WHEELCHAIR WITH NO MEDICAL EQUIPMENT PROVIDER PREFERENCE. PT HAS HOME HEALTH FOR NURSING AND PHYSICAL THERAPY AT HOME WITH [facility] AND PERSONAL CARE WITH [facility] ON [address], FRIDAY THRU FRIDAY FOR 14 3/4 HOURS TOTAL CARE PER WEEK. CM DISCUSSED REHAB ORDER, AVAILABILITY OF HOME HEALTH, REHAB SERVICES AND MEDICAL EQUIPMENT. PT REPORTS HAVING [facility] MEDICARE AND [place] MEDICAID. PT WILL ASK HIS DAUGHTER TO BRING MEDICARE CARD TOMORROW TO ASSIST WITH REHAB PLACEMENT. CM GAVE PT PROVIDER LISTING, PT WANTS TO GO TO [facility], REPORTS GETTING OUT OF REHAB 2 WEEKS AGO FROM THERE. CHOICE LETTER SIGNED. IMPORTANT MESSAGE FROM MEDICARE PROVIDED AND EXPLAINED. CM TO FAX REFERRAL TO [facility] SOON POSSIBLE. PT TO PROVIDE CM WITH MEDICARE CARD 10-07-18 TO ASSIST WITH REHAB PLACEMENT. Whiskey Filterer: Yao Cervantes DCPIA - Discharge Planning Initial Assessment Updated by [id number]: Yao Cervantes on 10/06/18 5:11 pm * Is the patient Alert and Oriented? Yes * How many steps to enter\exit or inside your home? * PCP DR SALEEM IN [place] * Pharm[facility] IN [place] * Preadmission Environment Home Alone * ADLs Independent * Equipment Cane Walker Wheelchair * Other Equipment NO MEDICAL EQUIPMENT PROVIDER PREFERENCE * List name and contact numbers for known caregivers / representatives who currently or will assist patient after discharge: FRANCO SUJEY, DTR, * Verbal permission to speak to the caregivers and representatives has been obtained from the patient. Yes * Community resources currently utilized Home Health Private Duty Care * Please name any agencies selected above. [facility] ON [address], PERSONAL ARE, M-F, 14 3/4 HOURS WEEKLY * Additional services required to return to the preadmission environment? Yes * Can the patient safely return to the preadmission environment? Yes * Has this patient been hospitalized within the prior 30 days at any hospital? Yes Coverage Notice Reviewer: [id number] Cervantes Notice Issued Date-Time: 10/06/2018 16:30 Notice Type: Patient Choice Letter Notice Delivered To: Patient Relationship to Patient: Secretary Office Clerk Name: Delivery Method: HAND - Hand Delivered Shanelle Days: Prior Verbal Notification: Recipient Understood Notice: Yes Recipient Signature: Yes Med Rec Note Co-signed by Attending: Coverage Notice Comment: [facility] Reviewer: [id number] Anahy Cervantes Notice Issued Date-Time: 10/06/2018 16:30 Notice Type: IM Discharge Notice Notice Delivered To: Patient Relationship to Patient: Secretary Office Clerk Name: Delivery Method: HAND - Hand Delivered Shanelle Days: Prior Verbal Notification: Recipient Understood Notice: Yes Recipient Signature: Yes Med Rec Note Co-signed by Attending: Coverage Notice Comment: Last DP export: 10/07/18 10:53 am Patient Name: DARWIN ROJAS Page 59581 at 0951 All edits/amendments must be made on the electronic document DICTATION DATE: 10/08/18949 HIDE AND SKIN COLERER: CHUNG 10/08/18949 RPT#: [id number] DC DATE: STATUS: ADM IN [facility] [address] [place] [address] END OF REPORT
--- NOTE | 2018-10-08 11:03 | NUR ---
CALLED REPORT TO NURSE ANAND AT [facility]. VAN TRANSPORT SET TO ARRIVE AT 130O. NOTIFIED PT.
--- NOTE | 2018-10-08 11:06 | MORECARE ---
CASE MANAGEMENT DISCHARGE SUMMARY PATIENT: DARWIN ROJAS UNIT: [id number] ADM DATE: 09/30/18 AGE: 67 : 49 SEX: M ROOM/BED: D.2130 AUTHOR: [place] PHYSICIAN: REFERRING PHYSICIAN: CHIQUIS PETTY MD DATE OF SERVICE: 10/08/18 Discharge Plan Patient Name: DARWIN ROJAS Facility: [facility]:[place] : 1950 Planned Disposition: Long Term Facility Anticipated Discharge Date: Discharge Date: Expected LOS: Initial Reviewer: [id number] Initial Review Date: 10/06/2018 Generated: 10/08/18 12:06 pm Comments DCP- Discharge Planning Updated by [email or web address]: Yao Cervantes on 10/08/18 10:[address] Patient Name: DARWIN ROJAS Encounter No: [id number] : 1950 Primary Insurance: MEDICARE A & B Anticipated DC Date: Planned Disposition: Long Term Facility External Planned Provider: [facility], MEDICARE REHAB BED DCP follow-up note: CM RECEIVED CALL FROM [place] OF [facility], CM NOTIFIED THAT PT IS READY TO DISCHARGE TODAY. [place] PROVIDED PT'S MEDICARE NUMBER. CM FAXED HOSPITAL UPDATE TO [phone]. CM PROVIDED HOSPITAL REGISTRATION WITH MEDICARE NUMBER FOR BILLING. FOR DISCHARGE, FAX DISCHARGE INFOMATION TO [facility], . CALL NURSE REPORT TO [facility] AT [phone]. [facility] TO ARRANGE VAN TRANSPORTATION. Yao Cervantes CASE MANAGEMENT Appended by Yao Cervantes on 10/08/2018 11:05 CDT: CM RECEIVED DISCHARGE ORDER, FAXED DISCHARGE INFOMATION TO [facility], . CALL NURSE REPORT TO [facility] AT [phone]. [facility] TO ARRANGE VAN TRANSPORTATION. NICK Britton DCP- Discharge Planning Updated by [id number]: Yao Cervantes on 10/07/18 10:[address] Patient Name: DARWIN ROJAS Encounter No: [id number] : 1950 Primary Insurance: [place]ID [place] Anticipated DC Date: Planned Disposition: Long Term Facility External Planned Provider: [facility], MEDICARE REHAB BED DCP follow-up note: CM RECEIVED CALL FROM [place] [facility], PT WAS SENT TO HOSPITAL FROM REHAB, THEY PLAN TO ACCEPT BACK TO REHAB BED AT DISCHARGE. [place] IS FAXING PT'S MEDICARE CARD AND HAS PT HAVING STANDARD MEDICARE A & B. CM FAXED HOSPITAL UPDATE TO [phone]. FOR DISCHARGE, FAX DISCHARGE INFOMATION TO [facility], . CALL NURSE REPORT TO [facility] AT [phone]. [facility] TO ARRANGE VAN TRANSPORTATION. Yao Cervantes, CASE MANAGEMENT DCP- Discharge Planning Updated by [email or web address]: Yao Cervantes on 10/06/18 4:[address] Patient Name: DARWIN ROJAS Admission Status: ER Accout number: [id number] Admission Date: 09-30-2018 : 1950 Admission Diagnosis:ACUTE KIDNEY FAILURE, UNSPECIFIED Attending: CHIQUIS PETTY Current LOS: 6 Anticipated DC Date: Planned Disposition: Long Term Facility Primary Insurance: [place]ICAID [place] PLANNED EXTERNAL PROVIDER: [facility], MEDICARE REHAB BED Discharge Planning Comments: CM RECEIVED ORDER FOR REHAB PLACEMENT IN [place]. CM MET WITH PT IN ROOM TO DISCUSS DISCHARGE PLANNING AND NEEDS. PT REPORTS LIVING AT HOME INDEPENDENTLY AND ALONE. PT HAS CANE, WALKER AND WHEELCHAIR WITH NO MEDICAL EQUIPMENT PROVIDER PREFERENCE. PT HAS HOME HEALTH FOR NURSING AND PHYSICAL THERAPY AT HOME WITH [facility] AND PERSONAL CARE WITH [facility] ON [address], FRIDAY THRU FRIDAY FOR 14 3/4 HOURS TOTAL CARE PER WEEK. CM DISCUSSED REHAB ORDER, AVAILABILITY OF HOME HEALTH, REHAB SERVICES AND MEDICAL EQUIPMENT. PT REPORTS HAVING [facility] MEDICARE AND [place] MEDICAID. PT WILL ASK HIS DAUGHTER TO BRING MEDICARE CARD TOMORROW TO ASSIST WITH REHAB PLACEMENT. CM GAVE PT PROVIDER LISTING, [facility], REPORTS GETTING OUT OF REHAB 2 WEEKS AGO FROM THERE. CHOICE LETTER SIGNED. IMPORTANT MESSAGE FROM MEDICARE PROVIDED AND EXPLAINED. CM TO [facility] SOON POSSIBLE. PT TO PROVIDE CM WITH MEDICARE CARD 5-1-19 TO ASSIST WITH REHAB PLACEMENT. Tax Compliance Agent: Yao Cervantes DCPIA - Discharge Planning Initial Assessment Updated by [id number]: Yao Cervantes on 10/06/18 5:11 pm * Is the patient Alert and Oriented? Yes * How many steps to enter\exit or inside your home? * PCP DR SALEEM IN [place] * [facility] [place] * Preadmission Environment Home Alone * ADLs Independent * Equipment Cane Walker Wheelchair * Other Equipment NO MEDICAL EQUIPMENT PROVIDER PREFERENCE * List name and contact numbers for known caregivers / representatives who currently or will assist patient after discharge: FRANCO RM, DTR, * Verbal permission to speak to the caregivers and representatives has been obtained from the patient. Yes * Community resources currently utilized Home Health Private Duty Care * Please name any agencies selected above. [facility] ON [address], PERSONAL ARE, M-F, 14 3/4 HOURS WEEKLY * Additional services required to return to the preadmission environment? Yes * Can the patient safely return to the preadmission environment? Yes * Has this patient been hospitalized within the prior 30 days at any hospital? Yes Coverage Notice Reviewer: [id number] Anahy Cervantes Notice Issued Date-Time: 10/06/2018 16:30 Notice Type: Patient Choice Letter Notice Delivered To: Patient Relationship to Patient: Wallpaper Printer Helper Name: Delivery Method: HAND - Hand Delivered Shanelle Days: Prior Verbal Notification: Recipient Understood Notice: Yes Recipient Signature: Yes Med Rec Note Co-signed by Attending: Coverage Notice Comment: [facility] Reviewer: [id number] Anahy Cervantes Notice Issued Date-Time: 10/06/2018 16:30 Notice Type: IM Discharge Notice Notice Delivered To: Patient Relationship to Patient: Wallpaper Printer Helper Name: Delivery Method: HAND - Hand Delivered Shanelle Days: Prior Verbal Notification: Recipient Understood Notice: Yes Recipient Signature: Yes Med Rec Note Co-signed by Attending: Coverage Notice Comment: Last DP export: 10/08/18 8:51 am Patient Name: DARWIN ROJAS Page 30840 at 1106 All edits/amendments must be made on the electronic document DICTATION DATE: 10/08/181104 CASING CREW: DM 10/08/18 110 RPT#: [id number] DC DATE: STATUS: ADM IN [facility] [address] [place] [address] END OF REPORT
[2018-10-08 12:00] VITALS: BP 144/68
--- NOTE | 2018-10-08 13:41 | NUR ---
PIV REMOVED WITH CATHETER TIP INTACT, TELEMETRY REMOVED AND RETURNED TO SPORTS CARTOONIST, WANDA. PT LEFT VIA WHEELCHAIR WITH [facility]
--- NOTE | 2018-10-09 08:47 | MORECARE ---
CASE MANAGEMENT DISCHARGE SUMMARY PATIENT: DARWIN ROJAS UNIT: [id number] ADM DATE: 09/30/18 AGE: 67 : [birth year] SEX: M ROOM/BED: D.2130 AUTHOR: [place] PHYSICIAN: REFERRING PHYSICIAN: CHIQUIS PETTY MD DATE OF SERVICE: 10/09/18 Discharge Plan Patient Name: DARWIN ROJAS Facility: [facility]:[place] : 1950 Planned Disposition: Alf Facility Anticipated Discharge Date: 10/08/18 Discharge Date: 10/08/2018 Expected LOS: 8 Initial Reviewer: [id number] Initial Review Date: 10/06/2018 Generated: 10/09/18 9:47 am Comments DCP- Discharge Planning Updated by [email or web address]: Yao Cervantes on 10/08/18 10:[address] Patient Name: DARWIN ROJAS Encounter No: [id number] : 1950 Primary Insurance: MEDICARE A & B Anticipated DC Date: Planned Disposition: Alf Facility External Planned Provider: [facility], MEDICARE REHAB BED DCP follow-up note: CM RECEIVED CALL FROM [place], CM NOTIFIED THAT PT IS READY TO DISCHARGE TODAY. [place] PROVIDED PT'S MEDICARE NUMBER. CM FAXED HOSPITAL UPDATE TO [phone]. CM PROVIDED HOSPITAL REGISTRATION WITH MEDICARE NUMBER FOR BILLING. FOR DISCHARGE, FAX DISCHARGE INFOMATION TO [facility], . CALL NURSE REPORT TO [facility] AT [phone]. [facility] TO ARRANGE VAN TRANSPORTATION. Yao Cervantes CASE MANAGEMENT Appended by Yao Cervantes on 10/08/2018 11:05 CDT: CM RECEIVED DISCHARGE ORDER, FAXED DISCHARGE INFOMATION TO [facility], . CALL NURSE REPORT TO [facility] AT [phone]. [facility] TO ARRANGE VAN TRANSPORTATION. NICK Britton DCP- Discharge Planning Updated by [id number]: Yao Cervantes on 10/07/18 10:[address] Patient Name: DARWIN ROJAS Encounter No: [id number] : 1950 Primary Insurance: [place] Anticipated DC Date: Planned Disposition: Alf Facility External Planned Provider: [facility], MEDICARE REHAB BED DCP follow-up note: CM RECEIVED CALL FROM [facility], PT WAS SENT TO HOSPITAL FROM REHAB, THEY PLAN TO ACCEPT BACK TO REHAB BED AT DISCHARGE. [facility] IS FAXING PT'S MEDICARE CARD AND HAS PT HAVING STANDARD MEDICARE A & B. CM FAXED HOSPITAL UPDATE TO [phone]. FOR DISCHARGE, FAX DISCHARGE INFOMATION TO [facility], . CALL NURSE REPORT TO [facility] AT [phone]. [facility] TO ARRANGE VAN TRANSPORTATION. Yao Cervantes, CASE MANAGEMENT DCP- Discharge Planning Updated by [id number]: Yao Cervantes on 10/06/18 4:[address] Patient Name: DARWIN ROJAS Admission Status: ER Accout number: [id number] Admission Date: 09-30-2018 : 1950 Admission Diagnosis:ACUTE KIDNEY FAILURE, UNSPECIFIED Attending: CHIQUIS PETTY Current LOS: 6 Anticipated DC Date: Planned Disposition: Alf Facility Primary Insurance: [place] PLANNED EXTERNAL PROVIDER: [facility], MEDICARE REHAB BED Discharge Planning Comments: CM RECEIVED ORDER FOR REHAB PLACEMENT IN [place]. CM MET WITH PT IN ROOM TO DISCUSS DISCHARGE PLANNING AND NEEDS. PT REPORTS LIVING AT HOME INDEPENDENTLY AND ALONE. PT HAS CANE, WALKER AND WHEELCHAIR WITH NO MEDICAL EQUIPMENT PROVIDER PREFERENCE. PT HAS HOME HEALTH FOR NURSING AND PHYSICAL THERAPY AT HOME WITH [facility] [address], FRIDAY THRU FRIDAY FOR 14 3/4 HOURS TOTAL CARE PER WEEK. CM DISCUSSED REHAB ORDER, AVAILABILITY OF HOME HEALTH, REHAB SERVICES AND MEDICAL EQUIPMENT. PT REPORTS HAVING [employer] MEDICARE AND [place] MEDICAID. PT WILL ASK HIS DAUGHTER TO BRING MEDICARE CARD TOMORROW TO ASSIST WITH REHAB PLACEMENT. CM GAVE PT PROVIDER LISTING, PT WANTS TO GO TO [facility] [facility], REPORTS GETTING OUT OF REHAB 2 WEEKS AGO FROM THERE. CHOICE LETTER SIGNED. IMPORTANT MESSAGE FROM MEDICARE PROVIDED AND EXPLAINED. CM TO FAX REFERRAL TO [facility] SOON POSSIBLE. PT TO PROVIDE CM WITH MEDICARE CARD [id number] TO ASSIST WITH REHAB PLACEMENT. Support Specialist: Yao Cervantes DCPIA - Discharge Planning Initial Assessment Updated by [email or web address]: Yao Cervantes on 10/06/18 5:11 pm * Is the patient Alert and Oriented? Yes * How many steps to enter\exit or inside your home? * PCP DR [facility] IN [place] * Pharmacy [facility] [place] * Preadmission Environment Home Alone * ADLs Independent * Equipment Cane Walker Wheelchair * Other Equipment NO MEDICAL EQUIPMENT PROVIDER PREFERENCE * List name and contact numbers for known caregivers / representatives who currently or will assist patient after discharge: FRANCO RM, DTR, * Verbal permission to speak to the caregivers and representatives has been obtained from the patient. Yes * Community resources currently utilized Home Health Private Duty Care * Please name any agencies selected above. [facility] ON [address], PERSONAL ARE, M-F, 14 3/4 HOURS WEEKLY * Additional services required to return to the preadmission environment? Yes * Can the patient safely return to the preadmission environment? Yes * Has this patient been hospitalized within the prior 30 days at any hospital? Yes Coverage Notice Reviewer: [id number] Anahy Cervantes Notice Issued Date-Time: 10/06/2018 16:30 Notice Type: Patient Choice Letter Notice Delivered To: Patient Relationship to Patient: City Superintendent Name: Delivery Method: HAND - Hand Delivered Shanelle Days: Prior Verbal Notification: Recipient Understood Notice: Yes Recipient Signature: Yes Med Rec Note Co-signed by Attending: Coverage Notice Comment: [facility] Reviewer: [id number] Anahy Cervantes Notice Issued Date-Time: 10/06/2018 16:30 Notice Type: IM Discharge Notice Notice Delivered To: Patient Relationship to Patient: City Superintendent Name: Delivery Method: HAND - Hand Delivered Shanelle Days: Prior Verbal Notification: Recipient Understood Notice: Yes Recipient Signature: Yes Med Rec Note Co-signed by Attending: Coverage Notice Comment: Last DP export: 10/08/18 10:06 am Patient Name: DARWIN ROJAS Page [phone] at 0847 All edits/amendments must be made on the electronic document DICTATION DATE: 10/09/1847 SOFTWARE APPLICATIONS ARCHITECT: CHUNG 10/09/1847 RPT#: [id number] DC DATE:10/08/18 STATUS: DIS IN [facility] [address] [place] [address] END OF REPORT
== END 2018-10-08 13:42 | DRG 684 ==
LOC: D.ER 19:24 → D.M2 22:13 → EDSEX 22:13 → D.EDHOLD 22:13 → D.M2 22:41
PROVIDERS: Family Medicine; Internal Medicine Nephrology; ADMIT Internal Medicine Nephrology; ATTEND Internal Medicine Nephrology
DX: N17.9 Acute kidney failure, unspecified (principal); E11.22 Type 2 diabetes mellitus with diabetic chronic kidney disease; I12.9 Hypertensive chronic kidney disease with stage 1 through stage 4 chronic kidney disease, or unspecified chronic kidney disease; N18.3 Chronic kidney disease, stage 3 (moderate); I48.91 Unspecified atrial fibrillation; F32.9 Major depressive disorder, single episode, unspecified; E87.5 Hyperkalemia; E83.51 Hypocalcemia; R16.0 Hepatomegaly, not elsewhere classified; Z95.0 Presence of cardiac pacemaker; D64.9 Anemia, unspecified